=== PATIENT | female | born 1975 | race Caucasian/White ===

== ENCOUNTER → 2019-08-02 09:42 | Outpatient (CLI) | payer OTHER, SELFPAY ==
[2019-08-02 11:33] LABS: Vitamin D,25 Hydroxy 36.9 ng/mL (29.95-100.01)
== END ==
PROVIDERS: Family Provider Family Medicine; PCP Family Medicine
DX: E03.9 Hypothyroidism, unspecified (principal); E55.9 Vitamin D deficiency, unspecified
CPT/HCPCS: 36415; 82306; 84443

== ENCOUNTER → 2020-05-13 09:50 | Outpatient (CLI) | payer OTHER, SELFPAY ==
[2020-05-13 11:29] LABS: Thyroid Stim Hormone (TSH) 0.28 uIU/mL (0.358-3.74)
== END ==
PROVIDERS: PCP Family Medicine
DX: E03.9 Hypothyroidism, unspecified (principal); E55.9 Vitamin D deficiency, unspecified
CPT/HCPCS: 36415; 84443

== ENCOUNTER → 2020-09-30 09:49 | Outpatient (CLI) | payer OTHER, SELFPAY ==
--- NOTE | 2020-09-30 09:56 | BD_ITS ---
STUDY: DUAL ENERGY X-RAY ABSORPTIOMETRY / DXA REASON FOR EXAM: Female, 45 years old. Age of john 40. Pat is 119# and 65.25 and quot; a loss of .5'' per pat. Takes a thyroid med. Takes 1200mg calcium. Exercises moderatly. TECHNIQUE: Bone Mineral Density (BMD) measurements of lumbar spine and bilateral hips were obtained. COMPARISON: None. FINDINGS: Lumbar Spine (L1-L4): g/cm2 (0.959) / T-score (-2.0) / Z-score (-1.8) Findings are suggestive of osteopenia with a moderate fracture risk. Left Femur Total: g/cm2 (0.808) / T-score (-1.6) / Z-score (-1.2) Left Femoral Neck: g/cm2 (0.865) / T-score (-1.2) / Z-score (-0.6) Right Femur Total: g/cm2 (0.819) / T-score (-1.5) / Z-score (-1.1) Right Femoral Neck: g/cm2 (0.892) / T-score (-1.1) / Z-score (-0.4) BD/Dexa Bone Density Study IMPRESSION: The patient is considered osteopenic as outlined below according to World [employer] Organization (WHO) criteria with a moderate fracture risk. Reference Information: The T-score is the number of standard deviations above or below the standard which is normal for young adults at their peak bone mineral density. The World Health Organization (WHO) interprets the T-scores as follows: Above -1 Normal bone density Between -1 and -2.5 Osteopenia Equal to / or below -2.5 Osteoporosis As a practical clinical guideline, osteopenia may be graded as follows: Mild -1 through -1.5 Moderate -1.6 through -2.0 Severe -2.1 through -2.4 The Z-score is the number of standard deviations above or below age-matched controls. A Z-score of less than -1.5 would be considered abnormal. References: 1. NIH Osteoporosis and Related Bone Diseases www osteo.org 2. International Society for Clinical Densitometry www iscd.org 3. National Osteoporosis Foundation www nof.org Electronically Signed: Yifan Shaw, at 10:02 EST , Service support ,
--- NOTE | 2020-09-30 10:12 | BI_ITS ---
MAMMOGRAPHY - BILATERAL SCREENING REASON FOR EXAM: Female, 45 years old. Routine annual screening examination. PERTINENT HISTORY: Baseline TECHNIQUE: Digital bilateral breast holden (3D mammographic acquisition) in the CC and MLO projections. 2-D mediolateral oblique (MLO) and craniocaudad (CC) views of both breasts were obtained. CAD: Full Field Digital Mammography with Computer Added Detection was performed. COMPARISON: None. FINDINGS: Breast Composition: Scattered There are no dominant masses or suspicious calcifications. No other significant abnormalities are identified. BI/SCREEN MAMM (CAD) W/HOLDEN BILAT IMPRESSION: Stable bilateral screening mammogram. Yearly follow-up mammogram recommended. (A) ASSESSMENT CATEGORY: BIRADS Category 1: Negative. A letter regarding these results will be sent to the patient by the facility within 30 days. Approximately 10% of breast cancers are not detected by mammography. A normal mammogram should not delay biopsy of a clinically suspicious abnormality. [id number] Electronically Signed: Loc Hou, at 11:02 EST Tel , Service support ,
== END ==
PROVIDERS: PCP Nurse Practitioner Family; Referring Provider Nurse Practitioner Family; Visit Provider Nurse Practitioner Family
DX: Z12.31 Encounter for screening mammogram for malignant neoplasm of breast (principal); Z78.0 Asymptomatic menopausal state
CPT/HCPCS: 77063; 77067; 77080

== ENCOUNTER → 2020-11-12 09:46 | Outpatient (CLI) | payer OTHER, SELFPAY ==
[2020-11-12 12:52] LABS: Vitamin D,25 Hydroxy 39.4 ng/mL
[2020-11-12 13:02] LABS: Thyroid Stim Hormone (TSH) 2.02 uIU/mL (0.358-3.74)
== END ==
PROVIDERS: PCP Nurse Practitioner Family
DX: E55.9 Vitamin D deficiency, unspecified (principal); E03.9 Hypothyroidism, unspecified
CPT/HCPCS: 36415; 82306; 84443

== ENCOUNTER → 2021-08-02 12:11 | Outpatient (CLI) | payer OTHER, SELFPAY ==
--- NOTE | 2021-08-02 12:22 | RAD_ITS ---
STUDY: X-RAY - LEFT HAND REASON FOR EXAM: Pain and bruising at the fifth metacarpal, left hand injury 11 days ago. TECHNIQUE: 2 view(s) of the hand. COMPARISON: None. FINDINGS: Normal radiocarpal articulation. Normal distal radioulnar joint. Normal visualized carpal bones. Normal carpal articulations Normal carpometacarpal articulation of the thumb. Normal second through fifth carpometacarpal joints. Normal metacarpi. Normal metacarpophalangeal joint of the thumb. Normal interphalangeal joint of the thumb. Normal proximal and distal phalanges of the thumb. Normal metacarpophalangeal joints of the second through fifth fingers. Normal proximal and distal interphalangeal joints of the second through fifth fingers. Normal phalanges of the second through fifth fingers. The soft tissue structures are unremarkable. RAD/Hand 2 Views IMPRESSION: Unremarkable x-ray examination of the left hand. Electronically Signed: Michele Pike MD at 13:36 EDT Tel , Service support ,
== END ==
PROVIDERS: PCP Family Medicine; Referring Provider Family Medicine; Visit Provider Family Medicine
DX: S69.92XA Unspecified injury of left wrist, hand and finger(s), initial encounter (principal)
CPT/HCPCS: 73120

== ENCOUNTER → 2021-09-15 10:29 | Outpatient (CLI) | payer OTHER, SELFPAY ==
[2021-09-15 12:34] LABS: Cholesterol 187 mg/dL (200); Glucose 83 mg/dL (74-106); High Density Lipoprotein 75 mg/dL; Thyroid Stim Hormone (TSH) 7.71 uIU/mL (0.358-3.74); Triglycerides 88 mg/dL; Very Low Density Lipoprotein 18 mg/dL (5-40)
== END ==
PROVIDERS: PCP Family Medicine
DX: Z00.00 Encounter for general adult medical examination without abnormal findings (principal); Z13.1 Encounter for screening for diabetes mellitus; E03.9 Hypothyroidism, unspecified; E55.9 Vitamin D deficiency, unspecified
CPT/HCPCS: 36415; 80061; 82947; 84443

== ENCOUNTER → 2021-10-19 10:12 | Outpatient (CLI) | payer OTHER, SELFPAY ==
--- NOTE | 2021-10-19 10:16 | BI_ITS ---
MAMMOGRAPHY - BILATERAL SCREENING REASON FOR EXAM: Female, 46 years old. Routine annual screening examination. PERTINENT HISTORY: Non-contributory. TECHNIQUE: Digital bilateral breast holden (3D mammographic acquisition) in the CC and MLO projections. 2-D mediolateral oblique (MLO) and craniocaudad (CC) views of both breasts were obtained. CAD: Full Field Digital Mammography with Computer Added Detection was performed. COMPARISON: Comparison is made with prior study dated 09/30/2020. FINDINGS: Breast Composition: The breasts are heterogeneously dense, which may obscure small masses. There are no dominant masses or suspicious calcifications. No other significant abnormalities are identified. There has been no significant change since the prior study. BI/SCRN MAMM (CAD)W/HOLDEN BILAT IMPRESSION: Stable bilateral screening mammogram. Yearly follow-up mammogram recommended. (A) ASSESSMENT CATEGORY: BIRADS Category 1: Negative. A letter regarding these results will be sent to the patient by the facility within 30 days. Approximately 10% of breast cancers are not detected by mammography. A normal mammogram should not delay biopsy of a clinically suspicious abnormality. [id number] Electronically Signed: Yifan Shaw MD at 10:55 EST , Service support ,
== END ==
PROVIDERS: PCP Family Medicine
DX: Z12.31 Encounter for screening mammogram for malignant neoplasm of breast (principal)
CPT/HCPCS: 77063; 77067

== ENCOUNTER → 2021-12-13 10:29 | Outpatient (CLI) | payer OTHER, SELFPAY ==
[2021-12-13 12:18] LABS: Thyroid Stim Hormone (TSH) 0.28 uIU/mL (0.358-3.74)
== END ==
PROVIDERS: PCP Family Medicine
DX: E03.9 Hypothyroidism, unspecified (principal)
CPT/HCPCS: 36415; 84443

== ENCOUNTER → 2022-06-14 | Outpatient (CLI) | payer OTHER, SELFPAY ==
[2022-06-14 09:53] LABS: Vitamin D,25 Hydroxy 43.7 ng/mL
[2022-06-14 10:00] LABS: Thyroid Stim Hormone (TSH) 5.47 uIU/mL (0.358-3.74)
== END | disposition home or self-care (01) ==
PROVIDERS: PCP Family Medicine
DX: E03.9 Hypothyroidism, unspecified (principal); E55.9 Vitamin D deficiency, unspecified
CPT/HCPCS: 36415; 82306; 84443

== ENCOUNTER → 2023-01-04 | Outpatient (CLI) | payer OTHER, SELFPAY ==
[2023-01-04 11:36] LABS: Thyroid Stim Hormone (TSH) 0.41 uIU/mL (0.358-3.74)
== END | disposition home or self-care (01) ==
PROVIDERS: PCP Family Medicine
DX: E89.0 Postprocedural hypothyroidism (principal)
CPT/HCPCS: 36415; 84443

== ENCOUNTER → 2023-07-18 | Outpatient (CLI) | payer OTHER, SELFPAY ==
[2023-07-18 13:46] LABS: Vitamin D,25 Hydroxy 51.4 ng/mL
[2023-07-18 13:53] LABS: Thyroid Stim Hormone (TSH) 0.81 uIU/mL (0.358-3.74)
== END | disposition home or self-care (01) ==
PROVIDERS: PCP Family Medicine
DX: E89.0 Postprocedural hypothyroidism (principal); E55.9 Vitamin D deficiency, unspecified; M85.80 Other specified disorders of bone density and structure, unspecified site
CPT/HCPCS: 36415; 82306; 84443

== ENCOUNTER → 2023-12-05 | Outpatient (CLI) | payer OTHER, SELFPAY ==
[2023-12-05 10:26] LABS: Anion Gap 4 (5-15); BUN 15 mg/dL (7-18); BUN/Creat Ratio 14.7 RATIO (10-20); Calcium,Total 9.1 mg/dL (8.5-10.1); Chloride 106 mmol/L (98-107); Cholesterol 204 mg/dL (200); Creatinine, Serum 1.02 mg/dL (0.55-1.02); EST Glomerular Filtration Rate 61 mL/min (>60); Est Glom Filt Rate - Afr Amer 74 mL/min (>60); Glucose 96 mg/dL (74-106); High Density Lipoprotein 80 mg/dL; Sodium Level 139 mmol/L (136-145); Triglycerides 94 mg/dL; Very Low Density Lipoprotein 19 mg/dL (5-40)
--- OUTSIDE RECORDS SUMMARY | 2023-12-05 10:26 | XMS RPT_ITS | CCD ---
Author Name Unknown Address [address] [place] [address] Organization [facility] Care Team Providers Care [employer]ader Name Role Phone Unavailable Primary Care Provider Unavailabl e ANJALI PEREZ Referring Unavailable ANJALI PEREZ Attending Unavailable Allergies Allergy Classification Reported Allergen(s) Allergy Type Date of Onset Reaction(s) Facility (3 sources) Propylene glycol; Translations: [PROPYLENE GLYCOL] Drug Allergy 3 Hives, Rash, Swelling [facility] (3 sources) Soy protein; Translations: [SOY] Drug Intolerance 3 Cough, Swelling [facility] Medications Completed/Discontinued Medications Medication Drug Class(es) Dates Sig (Normalized) Sig (Original) calcium citrate/vitamin D3 (CITRUS CALCIUM 1500 + D ORAL) (5 sources) calcium citrate/ vitamin D3 (CITRUS CALCIUM 1500 + D ORAL) Take by mouth once daily. 0 Active Problems Active Problems Problem Classification Problem Date Documented Da te Episodic/Chronic Complications of surgical procedures or medical care (9 sources) Postablative hypothyroidism; Translations: [Postprocedural hypothyroidism] Onset: 06-17-2022 Chronic Nutritional deficiencies (4 sources) Vitamin D deficiency; Translations: [Vitamin D deficiency, unspecified] Onset: 01-12-2023 Chronic Past or Other Problems Problem Classification Problem Date Documented Da te Episodic/Chronic Other bone disease and musculoskeletal deformities (3 sources) Osteopenia; Translations: [Other specified disorders of bone density and structure, unspecified site] Onset: 01-12-2023 Episodic Other bone disease and musculoskeletal deformities (1 source) Other specified disorders of bone density and structure, unspecified site; Translations: [Osteopenia, unspecified location] Onset: 01-12-2023 Episodic Other nutritional; endocrine; and metabolic disorders (7 sources) History of Graves' disease; Translations: [Personal history of other endocrine, nutritional and metabolic disease] Onset: 06-17-2022 Episodic Other nutritional; endocrine; and metabolic disorders (1 source) Personal history of other endocrine, nutritional and metabolic disease; Translations: [History of Graves' disease] Onset: 06-17-2022 Episodic Results Test Name Value Interpretation Reference Range Facil ity Vital Signs Date Time Vital Sign Value Performing Clinician Vane hayes 01-12-2023 09:43-0500 Body height 165.1 cm Anjali Perez MD Work Phone: [facility] 01-12-2023 09:43-0500 Body weight 56.61 kg Anjali Perez MD Work Phone: [facility] 01-12-2023 09:43-0500 Diastolic blood pressure 70 mm[Hg] Anjali Perez MD Work Phone: [facility] 01-12-2023 09:43-0500 Heart rate 89 /min Anjali Perez MD Work Phone: [facility] 01-12-2023 09:43-0500 Systolic blood pressure 110 mm[Hg] Anjali Perez MD Work Phone: [facility] 06-17-2022 11:34-0400 Body height 165.1 cm Anjali Perez MD Work Phone: [facility] 06-17-2022 11:34-0400 Body weight 56.97 kg Anjali Perez MD Work Phone: [facility] 06-17-2022 11:34-0400 Diastolic blood pressure 64 mm[Hg] Anjali Perez MD Work Phone: [facility] 06-17-2022 11:34-0400 Heart rate 83 /min Anjali Perez MD Work Phone: [facility] 06-17-2022 11:34-0400 Systolic blood pressure 110 mm[Hg] Anjali Perez MD Work Phone: [facility] Encounters Encounter Date Encounter Type Care Provider Facility Start: 07-19-2023 Telephone encounter Anjali kenny MD [facility], and Metabolism Plan of Treatment Date Care Activity Detail Author Start: 07-15-2023 End: 09-14-2023 25-hydroxyvitamin D3 [Mass/volume] in Serum or Plasma VITAMIN D 25 HYDROXY Lab Routine Vitamin D deficiency Osteopenia, unspecified location Expected: 07/15/2023 (Approximate), Expires: 09/14/2023 [facility] Work Phone: Payers Date Payer Category Payer Unknown [id number] 2021 Unknown [id number] Social History Date Type Detail Facility Tobacco smoking stat [facility] Tobacco smoking consumption unknown [facility] Start: 1975 Sex Assigned At Not on file [facility] Start: 06-17-2022 Tobacco smoking stat [facility] Never smoked tobacco [facility] Start: 06-17-2022 Tobacco use and exposure Smokeless t obacco non-user [facility] Start: 06-17-2022 End: 01-12-2023 Alcohol intake Lifetime non-drinker (finding) [facility] Start: 06-07-2022 End: 06-17-2022 Exposure to SARS-CoV-2 (event) Not sure [facility] Start: 1975 Sex Assigned At Female [facility] Start: 11-24-2022 End: 01-12-2023 History of Social function [facility] Start: 11-24-2022 End: 01-12-2023 Tobacco use panel [facility] National Score (1-10 0), lower number is lower risk 56 [facility] Start: 01-11-2023 Gender identity Identifies as female gender (finding) [facility] Note 08-09-2023 Telephone Encounter - Anjali Perez MD - 08/09/2023 9:37 AM EDTTelephone Encounter - Nicole Jefferson MA - 07/19/2023 3:04 PM EDT Note Date & Type Note Facility 08-09-2023 Miscellaneous Notes Formattin g of this note might be different from the original. Patient was seen on 01/12/2023. Lab was recommended in 6 months. TSH 0.81 on 07/18/2023, normal. Vitamin D level 51.4 on 07/18/2023, normal. Plan: To call patient, labs stable, schedule follow-up appointment around January 13, 2024 for a 1 year follow-up. Results given to Dr Perez to review. NEXT OV NONE [email or web address] web developer documented in this encounter [facility] Progress note 01-12-2023 Note Date & Type Note Facility 01-12-2023 Note HNO ID: [id number] Author: Anjali Perez MD Service: ? Author Type: Physician Type: Progress Notes Filed: 01/12/2023 10:18 AM Note Text: FOLLOW UP ENDOCRINOLOGY, THYROID SERVICE DATE: 01/12/2023 SERVICE TIME: 9:52 AM Chief complaint: Hypothyroidism, vitamin D deficiency HPI: Patient is a 47-year-old female who is seen today for a 6 months follow-up for hypothyroidism and vitamin D deficiency. She has been following with me since October 2011. Her last appointment was on 06/17/2022. Hypothyroidism: She had history of hyperthyroidism secondary to Graves' disease. She was initially seen by me in office in October 2011 for a new consult. She was started on methimazole treatment. She was given I-131 treatment 12.8 mCi in April 2012. She had a goiter which shrunk in size with treatment. She has been on brand-name Synthroid 100 mcg for years. Synthroid dose was decreased to 6 pills a week in 2019. Then patient had a high TSH of 7.7 in September 2021 and Synthroid was increased to 6-1/2 pills a week. Her TSH was 0.28 in December 2021 and the dose was decreased again to 6 pills a week. TSH is 5.47 on 06/14/2022 and dose was increased to 6-1/2 pills a week on 06/17/2022. -She has been taking Synthroid regularly. She says her energy level is good. She does not have any symptoms of hot flashes, tremor, heart racing or palpitations. She does not have any diplopia. Vitamin D deficiency: She also has history of vitamin D deficiency. Her vitamin D level was 16 in 2017. After vitamin D replacement her vitamin D levels improved. She was maintained on vitamin D3 5000 IUs 3/week. She stopped taking vitamin D when she started calcium citrate plus D. Vitamin D level was 39 in September 2021 and 43 in June 2022. Osteopenia: She was diagnosed with osteopenia in September 2020 per her PCP. She started taking calcium citrate plus D 1500 mg daily. She had been off vitamin D since 2020. PAST MEDICAL HISTORY Diagnosis Date History of Graves' disease Hypothyroidism Osteopenia Vitamin D deficiency PAST SURGICAL HISTORY Procedure Laterality Date NONE FAMILY HISTORY Problem Relation Age of Onset Hypertension Mother Heart Attack Mother Diabetes Father Thyroid Sister hypo Hypertension Maternal Grandmother Heart Attack Maternal Grandfather No Known Problems Paternal Grandmother No Known Problems Paternal Grandfather Social History Tobacco Use Smoking status: Never Smokeless tobacco: Never Substance Use Topics Alcohol use: Never Drug use: Never Outpatient Medications as of 01/12/2023 Medication Sig SYNTHROID 100 mcg tablet TAKE 1 TABLET DAILY BEFORE BREAKFAST MONDAY THROUGH MONDAY, SKIP MONDAY FOR POSTPROCEDURAL HYPOTHYROIDISM calcium citrate/vitamin D3 (CITRUS CALCIUM 1500 + D ORAL) Take by mouth once daily. No current facility-administered medications on file as of 01/12/2023. Review of Systems Constitutional: Negative for activity change, appetite change, fatigue and unexpected weight change. HENT: Negative for congestion, sore throat, trouble swallowing and voice change. Eyes: Negative for visual disturbance. Respiratory: Negative for cough, choking, chest tightness and shortness of breath. Cardiovascular: Negative for chest pain, palpitations and leg swelling. Gastrointestinal: Negative for abdominal pain, constipation, diarrhea and nausea. Endocrine: Negative for cold intolerance, heat intolerance and polyphagia. Genitourinary: Negative for difficulty urinating and dysuria. Musculoskeletal: Negative for arthralgias, back pain, gait problem and myalgias. Skin: Negative for color change and rash. Neurological: Negative for dizziness, tremors, weakness, light-headedness, numbness and headaches. Hematological: Negative for adenopathy. Does not bruise/bleed easily. Psychiatric/Behavioral: Negative for confusion, dysphoric mood and sleep disturbance. The patient is not nervous/anxious. Physical Exam Constitutional: General: She is not in acute distress. Appearance: She is normal weight. Eyes: Extraocular Movements: Extraocular movements intact. Pupils: Pupils are equal, round, and reactive to light. Neck: Thyroid: No thyromegaly. Cardiovascular: Rate and Rhythm: Normal rate and regular rhythm. Heart sounds: Normal heart sounds. No murmur heard. Pulmonary: Effort: Pulmonary effort is normal. Breath sounds: Normal breath sounds. Musculoskeletal: General: Normal range of motion. Cervical back: Normal range of motion and neck supple. Right lower leg: No edema. Left lower leg: No edema. Skin: General: Skin is warm and dry. Findings: No bruising. Neurological: General: No focal deficit present. Mental Status: She is alert and oriented to person, place, and time. Motor: No weakness. Psychiatric: Mood and Affect: Mood normal. Judgment: Judgment normal. BP 110/70 Pulse 89 Ht 165.1 cm (5' 5 ) Wt 56.6 kg (124 lb 12.8 o (more content not included)... [facility] History of Present illness Narrative 01-12-2023 Anjali Perez MD - 01/12/2023 9:51 AM EST Note Date & Type Note Facility 01-12-2023 History of Presen t illness Narrative FOLLOW UP ENDOCRINOLOGY, THYROID SERVICE DATE: 01/12/2023 SERVICE TIME: 9:52 AM Chief complaint: Hypothyroidism, vitamin D deficiency HPI: Patient is a 47-year-old female who is seen today for a 6 months follow-up for hypothyroidism and vitamin D deficiency. She has been following with me since October 2011. Her last appointment was on 06/17/2022. Hypothyroidism: She had history of hyperthyroidism secondary to Graves' disease. She was initially seen by me in office in October 2011 for a new consult. She was started on methimazole treatment. She was given I-131 treatment 12.8 mCi in April 2012. She had a goiter which shrunk in size with treatment. She has been on brand-name Synthroid 100 mcg for years. Synthroid dose was decreased to 6 pills a week in 2019. Then patient had a high TSH of 7.7 in September 2021 and Synthroid was increased to 6-1/2 pills a week. Her TSH was 0.28 in December 2021 and the dose was decreased again to 6 pills a week. TSH is 5.47 on 06/14/2022 and dose was increased to 6-1/2 pills a week on 06/17/2022. -She has been taking Synthroid regularly. She says her energy level is good. She does not have any symptoms of hot flashes, tremor, heart racing or palpitations. She does not have any diplopia. Vitamin D deficiency: She also has history of vitamin D deficiency. Her vitamin D level was 16 in 2016. After vitamin D replacement her vitamin D levels improved. She was maintained on vitamin D3 5000 IUs 3/week. She stopped taking vitamin D when she started calcium citrate plus D. Vitamin D level was 39 in September 2021 and 43 in June 2022. Osteopenia: She was diagnosed with osteopenia in September 2020 per her PCP. She started taking calcium citrate plus D 1500 mg daily. She had been off vitamin D since 2020. PAST MEDICAL HISTORY Diagnosis Date History of Graves' disease Hypothyroidism Osteopenia Vitamin D deficiency PAST SURGICAL HISTORY Procedure Laterality Date NONE FAMILY HISTORY Problem Relation Age of Onset Hypertension Mother Heart Attack Mother Diabetes Father Thyroid Sister hypo Hypertension Maternal Grandmother Heart Attack Maternal Grandfather No Known Problems Paternal Grandmother No Known Problems Paternal Grandfather Social History Tobacco Use Smoking status: Never Smokeless tobacco: Never Substance Use Topics Alcohol use: Never Drug use: Never Outpatient Medications as of 01/12/2023 Medication Sig SYNTHROID 100 mcg tablet TAKE 1 TABLET DAILY BEFORE BREAKFAST MONDAY THROUGH MONDAY, SKIP MONDAY FOR POSTPROCEDURAL HYPOTHYROIDISM calcium citrate/vitamin D3 (CITRUS CALCIUM 1500 + D ORAL) Take by mouth once daily. No current facility-administered medications on file as of 01/12/2023. Review of Systems Constitutional: Negative for activity change, appetite change, fatigue and unexpected weight change. HENT: Negative for congestion, sore throat, trouble swallowing and voice change. Eyes: Negative for visual disturbance. Respiratory: Negative for cough, choking, chest tightness and shortness of breath. Cardiovascular: Negative for chest pain, palpitations and leg swelling. Gastrointestinal: Negative for abdominal pain, constipation, diarrhea and nausea. Endocrine: Negative for cold intolerance, heat intolerance and polyphagia. Genitourinary: Negative for difficulty urinating and dysuria. Musculoskeletal: Negative for arthralgias, back pain, gait problem and myalgias. Skin: Negative for color change and rash. Neurological: Negative for dizziness, tremors, weakness, light-headedness, numbness and headaches. Hematological: Negative for adenopathy. Does not bruise/bleed easily. Psychiatric/Behavioral: Negative for confusion, dysphoric mood and sleep disturbance. The patient is not nervous/anxious. Physical Exam Constitutional: General: She is not in acute distress. Appearance: She is normal weight. Eyes: Extraocular Movements: Extraocular movements intact. Pupils: Pupils are equal, round, and reactive to light. Neck: Thyroid: No thyromegaly. Cardiovascular: Rate and Rhythm: Normal rate and regular rhythm. Heart sounds: Normal heart sounds. No murmur heard. Pulmonary: Effort: Pulmonary effort is normal. Breath sounds: Normal breath sounds. Musculoskeletal: General: Normal range of motion. Cervical back: Normal range of motion and neck supple. Right lower leg: No edema. Left lower leg: No edema. Skin: General: Skin is warm and dry. Findings: No bruising. Neurological: General: No focal deficit present. Mental Status: She is alert and oriented to person, place, and time. Motor: No weakness. Psychiatric: Mood and Affect: Mood normal. Judgment: Judgment normal. BP 110/70 Pulse 89 Ht 165.1 cm (5' 5 ) Wt 56.6 kg (124 lb 12.8 oz) BMI 20.77 kg/m Body mass index is 20.77 kg/m . LABORATORY RESULTS: Hemoglobin (g/dL) Date Value 12/05/2014 13.6 Hematocrit (%) Date Value 12/05/2014 41.0 WBC (thou/cmm) Date Value 12/05/2014 5.3 Platelet Count (thou/cmm) Date Value 12/05/2014 194 Potassium (mEq/L) Date Value 12/16/2016 4.4 Sodium (mEq/L) Date Value 12/16/2016 144 Creatinine (mg/dL) Date Value 12/16/2016 0.85 BUN (mg/dL) Date Value 12/16/2016 11 Glucose (mg/dL) Date Value 12/16/2016 66 Lipids: No results found for: CHOL, HDL, LDL, TG Albumin (g/dL) Date Value 12/05/2014 4.4 Bilirubin, Total (mg/dL) Date Value 12/05/2014 0.4 Alkaline Phosphatase (U/L) Date Value 12/05/2014 59 AST (U/L) Date Value 12/05/2014 21 ALT (U/L) Date Value 12/05/2014 25 Protein, Total (g/dL) Date Value 12/05/2014 7.2 No results found for: LVEF No results found for: HBA1C ASSESSMENT/PLAN: 1. History of Graves' disease - ICD9: V12.29, ICD10: Z86.39 (primary diagnosis) - Patient had goiter and hyperthyroidism due to Graves' disease in October 2011. She was treated with methimazole for 6 months and then was treated with 12.8 mCi of I-131 in April 2012. - She is in remission. No Graves' ophthalmopathy. 2. Postablative hypothyroidism - ICD9: 244.1, ICD10: E89.0 -Diagnosed in 2011 after I-131 treatment for Graves' disease. She has been taking brand-name Synthroid for years. She has been on brand-name Synthroid 100 mcg and the dose was increased from 6 pills a week to 6-1/2 pills a week on June 17, 2022 when her TSH was 5.47. -Current TSH is 0.41 on 01/04/2023. Continue current treatment Synthroid 100 mcg 6-1/2 pills a week. - Instructed patient on importance of taking medication on an empty stomach first thing in the morning, 30 minutes before eating, alone and with water only. - SYNTHROID 100 MCG TABLET - TSH BLD 3. Vitamin D deficiency - ICD9: 268.9, ICD10: E55.9 -Diagnosed in 2016 when her vitamin D level was 16. Vitamin D level improved after replacement and she was on vitamin D3 5000 IUs 3/week. She has been off of vitamin D since September 2021 and is now taking 1 calcium and vitamin D 1500 mg daily. -Last vitamin D level was stable at 43 in June 2022. We will check a vitamin D level in 6 months - VITAMIN D 25 HYDROXY 4. Osteopenia, unspecified location - ICD9: 733.90, ICD10: M85.80 - Diagnosed per PCP. Patient is on calcium citrate plus vitamin D 1500 mg daily. - Reviewed the need for Calcium and Vitamin D supplements and weight bearing exercise as tolerated -Due for bone density per her PCP Dr. Wagoner - VITAMIN D 25 HYDROXY Anjali Perez MD Follow up: To call after 6 months labs, then decide; if labs normal, follow-up in 1 year Lab/tests : TSH and vitamin D level in 6 months, to call after labs January 12, 2023 9:52 AM Please note, the time of this note does not reflect the time I saw this patient today, but the time of this documentation. documented in this encounter [facility] Note 01-06-2023 Telephone Encounter - Anjali Perez MD - 01/06/2023 8:50 AM ESTTelephone Encounter - Nicole Jefferson MA - 01/05/2023 4:27 PM EST Note Date & Type Note Facility 01-06-2023 Miscellaneous Notes Formattin g of this note might be different from the original. Lab on 01/04/2023: TSH 0.41. Patient was seen on 06/17/2022 and has follow-up appointment. Results given to Dr Perez to reivew. NEXT OV 01/12/2023 [email or web address] web developer documented in this encounter [facility] Note 01-06-2023 Telephone Encounter - Susan Degroot LPN - 01/06/2023 8:11 AM EST Note Date & Type Note Facility 01-06-2023 Miscellaneous Notes Formattin g of this note is different from the original. YANCI-06/17/2022 NOV-01/12/2023 Pharmacy electronically requesting refills as follows: Requested Prescriptions Pending Prescriptions Disp Refills SYNTHROID 100 mcg tablet [Pharmacy Med Name: SYNTHROID TAB 100MCG] 90 tablet 1 Sig: TAKE 1 TABLET DAILY BEFORE BREAKFAST MONDAY THROUGH MONDAY, SKIP MONDAY FOR POSTPROCEDURAL HYPOTHYROIDISM Please review and advise. Susan Degroot LPN documented in this encounter [facility] History of Present illness Narrative 06-17-2022 nAjali Perez MD - 06/17/2022 11:57 AM EDT Note Date & Type Note Facility 06-17-2022 History of Presen t illness Narrative FOLLOW UP ENDOCRINOLOGY, THYROID SERVICE DATE: 06/17/2022 SERVICE TIME: 11:57 AM Chief complaint: Hypothyroidism, 6 months follow-up This patient has been seen by me previously in my private practice of endocrinology since 10/2011. She is an established patient and is being seen by me as a follow-up patient today. HPI: Patient is a 47-year-old female who was seen today for a 6 months follow up for hypothyroidism. He was last seen in my office on December 17, 2021. Patient has history of hyperthyroidism secondary to Graves' disease. She was initially seen by me in office in October 2011 for a new consult. She was started on methimazole treatment. She was given I-131 treatment 12.8 mCi in April 2012. She had a goiter which shrunk in size with treatment. Patient has been on Synthroid 100 mcg for years. The dose was decreased to 6 pills a week in 2019. Then patient had a high TSH of 7.7 in September 2021 and Synthroid was increased to 6-1/2 pills a week. Her TSH was 0.28 in December 2021 and the dose was decreased again to 6 pills a week. Now, her TSH is 5.47 on 06/14/2022. Patient is still feeling fatigued and tired which is chronic. She is fairly active and exercises regularly. She walks 3 miles a day and does light weight with aerobics 3 times a week. She has noticed constipation which has been bothersome. She has also noticed double vision in left eye and had seen an fiscal services manager. Patient also has history of vitamin D deficiency. Her vitamin D level was 16 in 2016. After vitamin D replacement her vitamin D levels improved. She was maintained on vitamin D3 5000 IUs 3/week. She was diagnosed with osteopenia in September 2020 and now she is taking calcium citrate plus D 1500 mg daily. She has been off vitamin D since 2020. Her vitamin D level was 39 in September 2021 and is currently 43. PAST MEDICAL HISTORY Diagnosis Date Hypothyroidism Osteopenia Vitamin D deficiency PAST SURGICAL HISTORY Procedure Laterality Date NONE FAMILY HISTORY Problem Relation Age of Onset Hypertension Mother Heart Attack Mother Diabetes Father Thyroid Sister hypo Hypertension Maternal Grandmother Heart Attack Maternal Grandfather No Known Problems Paternal Grandmother No Known Problems Paternal Grandfather Social History Tobacco Use Smoking status: Never Smokeless tobacco: Never Substance Use Topics Alcohol use: Never Drug use: Never Outpatient Medications as of 06/17/2022 Medication Sig SYNTHROID 100 mcg tablet Take 100 mcg by mouth daily before breakfast. 1 tablet M-Mon and none on Monday calcium citrate/vitamin D3 (CITRUS CALCIUM 1500 + D ORAL) Take by mouth once daily. No current facility-administered medications on file as of 06/17/2022. Review of Systems Constitutional: Positive for fatigue. Negative for activity change, appetite change and unexpected weight change. HENT: Positive for hearing loss. Negative for congestion, sore throat, trouble swallowing and voice change. Eyes: Positive for visual disturbance. Diplopia on left gaze Respiratory: Negative for cough, choking, chest tightness and shortness of breath. Cardiovascular: Negative for chest pain, palpitations and leg swelling. Gastrointestinal: Positive for constipation. Negative for abdominal pain, diarrhea and nausea. Endocrine: Negative for cold intolerance, heat intolerance and polyphagia. Genitourinary: Negative for difficulty urinating and dysuria. Musculoskeletal: Negative for arthralgias, back pain, gait problem and myalgias. Skin: Negative for color change and rash. No hair loss, no nailbed changes Neurological: Negative for dizziness, tremors, weakness, light-headedness, numbness and headaches. Hematological: Negative for adenopathy. Does not bruise/bleed easily. Psychiatric/Behavioral: Negative for confusion, dysphoric mood and sleep disturbance. The patient is not nervous/anxious. Physical Exam Constitutional: General: She is not in acute distress. Appearance: She is normal weight. Eyes: General: No scleral icterus. Extraocular Movements: Extraocular movements intact. Pupils: Pupils are equal, round, and reactive to light. Comments: Diplopia on left gaze. No exophthalmos. No lid lag. Neck: Vascular: No carotid bruit. Cardiovascular: Rate and Rhythm: Normal rate and regular rhythm. Pulses: Normal pulses. Heart sounds: Normal heart sounds. No murmur heard. Pulmonary: Effort: Pulmonary effort is normal. Breath sounds: Normal breath sounds. Musculoskeletal: General: No deformity. Normal range of motion. Cervical back: Normal range of motion and neck supple. Right lower leg: No edema. Left lower leg: No edema. Skin: General: Skin is warm and dry. Findings: No bruising, lesion or rash. Neurological: General: No focal deficit present. Mental Status: She is alert and oriented to person, place, and time. Motor: No weakness. Psychiatric: Mood and Affect: Mood normal. Judgment: Judgment normal. BP 110/64 Pulse 83 Ht 165.1 cm (5' 5 ) Wt 57 kg (125 lb 9.6 oz) BMI 20.90 kg/m Body mass index is 20.9 kg/m . LABORATORY RESULTS: Hemoglobin (g/dL) Date Value 12/05/2014 13.6 Hematocrit (%) Date Value 12/05/2014 41.0 WBC (thou/cmm) Date Value 12/05/2014 5.3 Platelet Count (thou/cmm) Date Value 12/05/2014 194 Potassium (mEq/L) Date Value 12/16/2016 4.4 Sodium (mEq/L) Date Value 12/16/2016 144 Creatinine (mg/dL) Date Value 12/16/2016 0.85 BUN (mg/dL) Date Value 12/16/2016 11 Glucose (mg/dL) Date Value 12/16/2016 66 Lipids: No results found for: CHOL, HDL, LDL, TG Albumin (g/dL) Date Value 12/05/2014 4.4 Bilirubin, Total (mg/dL) Date Value 12/05/2014 0.4 Alkaline Phosphatase (U/L) Date Value 12/05/2014 59 AST (U/L) Date Value 12/05/2014 21 ALT (U/L) Date Value 12/05/2014 25 Protein, Total (g/dL) Date Value 12/05/2014 7.2 No results found for: LVEF No results found for: HBA1C ASSESSMENT/PLAN: 1. Postablative hypothyroidism - ICD9: 244.1, ICD10: E89.0 (primary diagnosis) -Patient has hypothyroidism since 2011 after I-131 treatment for Graves' disease. She has been on brand-name Synthroid for years. She had been on Synthroid 100 mcg 6 pills a week and her TSH was 7.7 in September 2021. The dose was increased to 6-1/2 pills a week. Then in December, TSH was 0.28 and the Synthroid dose was decreased again to 6 pills a week. -Now, her TSH is 5.47 on 06/14/2022. I would recommend increasing Synthroid to 100 mcg 6-1/2 pills a week, 1 pill Monday through Monday and half pill on Sundays. - Instructed patient on importance of taking on an empty stomach first thing in the morning, alone, with water and 30 minutes before eating - SYNTHROID 100 MCG TABLET - TSH BLD 2. History of Graves' disease - ICD9: V12.29, ICD10: Z86.39 -Hyperthyroidism due to Graves' disease and goiter diagnosed in October 2011. Patient was given methimazole for 6 months and then she was treated with 12.8 mCi of I-131 in April 2012. 3. Diplopia. Patient has noticed blurred vision with left gaze diplopia for the last few months. She had seen in operation and glasses were changed. Patient is still having diplopia. Would recommend seeing an wet char conveyor tender. 4. Osteopenia, diagnosed per PCP. Patient is on calcium citrate plus vitamin D C 1500 mg daily. 5. Constipation, may be due to decreased fiber in diet and could be from calcium also. Mended to take more fluids and more fruits and vegetables for high fiber in diet. Anjali Perez MD Follow up: 6 months Lab/tests : TSH before appointment June 17, 2022 11:57 AM Please note, the time of this note does not reflect the time I saw this patient today, but the time of this documentation. documented in this encounter [facility] Note 06-15-2022 Telephone Encounter - Anjali Perez MD - 06/15/2022 9:38 AM EDTTelephone Encounter - Nicole Jefferson MA - 06/15/2022 8:51 AM EDT Note Date & Type Note Facility 06-15-2022 Miscellaneous Notes Formattin g of this note might be different from the original. Labs from 06/14/2022 reviewed. TSH 5.47. TSH was 0.28 on 12/13/2021. Vitamin D level is 43.7. Patient has appointment coming up on 06/17/[address] Perez to review. Next OV 06/17/2022 [email or web address] web developer documented in this encounter [facility] Evaluation note Note Date & Type Note Facility documented in this encounter [facility] Evaluation note Note Date & Type Note Facility documented in this encounter [facility] Evaluation note Note Date & Type Note Facility documented [facility] this encounter [facility] Summary Purpose Family History No Family History Records FoundNo Family History Records Found Advance Directives No Advanced Directives Records FoundNo Advanced Directives Records Found Additional Source Comments INFORMATION SOURCE (unrecogn ized section and content) DATE CREATED AUTHOR AUTHOR'S ORGANIZ ATION 08/13/2023 [facility] Source Comments (unrecognize d section and content) In the event this informatio n is protected by the Federal Confidentiality of Alcohol and Drug Abuse Patient Records regulations: The Federal rules restrict any use of the information to criminally investigate or prosecute any alcohol or drug abuse patient.[facility] the event this information is protected by the Federal Confidentiality of Alcohol and Drug Abuse Patient Records regulations: The Federal rules restrict any use of the information to criminally investigate or prosecute any alcohol or drug abuse patient.[facility] the event this information is protected by the Federal Confidentiality of Alcohol and Drug Abuse Patient Records regulations: The Federal rules restrict any use of the information to criminally investigate or prosecute any alcohol or drug abuse patient.[facility] the event this information is protected by the Federal Confidentiality of Alcohol and Drug Abuse Patient Records regulations: The Federal rules restrict any use of the information to criminally investigate or prosecute any alcohol or drug abuse patient.[facility] the event this information is protected by the Federal Confidentiality of Alcohol and Drug Abuse Patient Records regulations: The Federal rules restrict any use of the information to criminally investigate or prosecute any alcohol or drug abuse patient.[facility] the event this information is protected by the Federal Confidentiality of Alcohol and Drug Abuse Patient Records regulations: The Federal rules restrict any use of the information to criminally investigate or prosecute any alcohol or drug abuse patient.[facility] Reason for Visit (unrecogniz ed section and content) Reason Comments Hypothyroidism Pituitary Problem Osteopenia Reason Comments Refill Request Synthroid Reason Comments Hypothyroidism Specialty Diagnoses / Procedures Referred By Contac t Referred To Contact Endocrinology / ENDOCRINOLOGY Diagnoses EST TYROID Procedures REFERRAL TO [facility]ANCIAL COUNSELOR EST Anjali Perez MD [address] [id number] Anjali Perez MD [address] [place] [address] Referral ID Status Reason Start Date Expiration Date Visits Requested Visits Authorized [id number] Closed Financial Clearance Required - OON Payor OON Notification Letter Patient cleared - OON Required Payment Collected 12/06/2022 03/06/2023 1 FOR RECORDS PERTAINING TO PATIENTS WHO ARE OR HAVE BEEN ENROLLED IN A CHEMICAL DEPENDENCY/SUBSTANCEABUSE PROGRAM, SOME INFORMATION MAY BE OMITTED. This clinical summary was aggregated from multiple sources. Caution should be exercised in using it in the provision of clinical care. This summary normalizes information from multiple sources, and as a consequence, information in this document may materially change the coding, format and clinical context of patient data. In addition, data may be omitted in some cases. CLINICAL DECISIONS SHOULD BE BASED ON THE PRIMARY CLINICAL RECORDS. [facility] [employer] provides no warranty or guarantee of the accuracy or completeness of information in this document.
== END | disposition home or self-care (01) ==
PROVIDERS: PCP Family Medicine
DX: Z01.419 Encounter for gynecological examination (general) (routine) without abnormal findings (principal); Z13.1 Encounter for screening for diabetes mellitus; Z13.6 Encounter for screening for cardiovascular disorders
CPT/HCPCS: 36415; 80048; 80061

== ENCOUNTER → 2023-12-06 | Outpatient (CLI) | payer OTHER, SELFPAY ==
--- NOTE | 2023-12-06 12:50 | BI_ITS ---
MAMMOGRAPHY - BILATERAL SCREENING REASON FOR EXAM: Female, 48 years old. Routine annual screening examination. PERTINENT HISTORY: Non-contributory. TECHNIQUE: Digital bilateral breast holden (3D mammographic acquisition) in the CC and MLO projections. 2-D mediolateral oblique (MLO) and craniocaudad (CC) views of both breasts were obtained. CAD: Full Field Digital Mammography with Computer Added Detection was performed. COMPARISON: Comparison is made with prior examination dated October 19, 2021 and September 30, 2020. FINDINGS: Breast Composition: The breasts are heterogeneously dense, which may obscure small masses. There is a 7.1 mm x 10 mm nodule in the retroareolar region of the right breast. Calcification is seen within it. This most likely represents a fibroadenoma. This is unchanged. No other significant abnormalities are identified. There has been no significant change since the prior study. BI/SCRN MAMM (CAD)W/HOLDEN BILAT IMPRESSION: Stable bilateral screening mammogram. Yearly follow-up mammogram recommended. (A) ASSESSMENT CATEGORY: BIRADS Category 2: Benign. A letter regarding these results will be sent to the patient by the facility within 30 days. Approximately 10% of breast cancers are not detected by mammography. A normal mammogram should not delay biopsy of a clinically suspicious abnormality. [id number] Electronically Signed: Yifan Shaw MD at 10:18 EST ,
--- NOTE | 2023-12-06 12:50 | BD_ITS ---
STUDY: DUAL ENERGY X-RAY ABSORPTIOMETRY / DXA REASON FOR EXAM: Female, 48 years old. [id number] TECHNIQUE: Bone Mineral Density (BMD) measurements of lumbar spine and bilateral hips were obtained. COMPARISON: Comparison is made with prior study dated September 30, 2020. FINDINGS: Lumbar Spine (L1-L4): g/cm2 (0.818) / T-score (-2.1) / Z-score (-1.3) Findings are suggestive of osteopenia with a high fracture risk. Left Femur Total: g/cm2 (0.749) / T-score (-1.6) / Z-score (-1.1) Left Femoral Neck: g/cm2 (0.715) / T-score (-1.2) / Z-score (-0.4) Right Femur Total: g/cm2 (0.737) / T-score (-1.7) / Z-score (-1.2) Right Femoral Neck: g/cm2 (0.669) / T-score (-1.6) / Z-score (-0.9) The T-Scores on the most recent prior examination were: Lumbar Spine (L1-L4): There has been worsening of bone density since the previous examination. Left Femur Total: which represents an improvement of 0.3%. Right Femur Total: which represents a worsening of 2.8%. BD/Dexa Bone Density Study IMPRESSION: The patient is considered osteopenic as outlined below according to World [employer] Organization (WHO) criteria with a high fracture risk. There has been worsening of bone density since the previous examination. Reference Information: The T-score is the number of standard deviations above or below the standard which is normal for young adults at their peak bone mineral density. The World Health Organization (WHO) interprets the T-scores as follows: Above -1 Normal bone density Between -1 and -2.5 Osteopenia Equal to / or below -2.5 Osteoporosis As a practical clinical guideline, osteopenia may be graded as follows: Mild -1 through -1.5 Moderate -1.6 through -2.0 Severe -2.1 through -2.4 The Z-score is the number of standard deviations above or below age-matched controls. A Z-score of less than -1.5 would be considered abnormal. References: 1. NIH Osteoporosis and Related Bone Diseases www osteo.org 2. International Society for Clinical Densitometry www iscd.org 3. National Osteoporosis Foundation www nof.org Electronically Signed: Yifan Shaw MD at 9:55 EST ,
== END | disposition home or self-care (01) ==
LOC: OPBD 12:49
PROVIDERS: PCP Family Medicine
DX: Z12.31 Encounter for screening mammogram for malignant neoplasm of breast (principal); Z78.0 Asymptomatic menopausal state
CPT/HCPCS: 77063; 77067; 77080

== ENCOUNTER → 2023-12-28 | Outpatient (CLI) | payer OTHER, SELFPAY ==
[2023-12-28 11:28] LABS: Calcium,Total 9.7 mg/dL (8.5-10.1)
[2023-12-28 11:30] LABS: PTHIN 39.3 pg/mL (18.4-80.1)
== END | disposition home or self-care (01) ==
LOC: LAB 09:46
PROVIDERS: PCP Family Medicine
DX: E03.9 Hypothyroidism, unspecified (principal); M85.88 Other specified disorders of bone density and structure, other site
CPT/HCPCS: 36415; 82310; 83970

== ENCOUNTER → 2024-01-19 | Outpatient (CLI) | payer OTHER, SELFPAY ==
[2024-01-19 11:25] LABS: Thyroid Stim Hormone (TSH) 0.57 uIU/mL (0.358-3.74)
== END | disposition home or self-care (01) ==
LOC: LAB 10:07
PROVIDERS: PCP Family Medicine
DX: E89.0 Postprocedural hypothyroidism (principal)
CPT/HCPCS: 36415; 84443